=== PATIENT | male | born 1995 | race Caucasian/White ===

== ENCOUNTER 2018-01-30 15:11 | Emergency (ER) | payer OTHER ==
[~2018-01-30] VITALS: Ht 182.9 cm; Wt 83.9 kg
[2018-01-30 15:17] VITALS: BP 130/91
[2018-01-30] MEDS ORDERED: Norco 5mg/325mg tab ORAL ONE (15:30)
--- NOTE | 2018-01-30 16:31 | Emergency Room Report ---
History of Present Illness General Chief Complaint: Pain Source: Patient Present Illness HPI 22-year-old male presents to the emergency department complaining of 10 out of 10 in severity localized pain, tenderness, swelling and some bruising to the left lateral ankle and foot since last night. Patient reports that he was drinking last night and he tripped any parking lot and in the course he sustained his injury. Patient states that he continued to walk on his foot and when he woke up this morning he realized had significant swelling and tenderness. Patient denies hitting his head he denies loss of consciousness and he denies midline neck or back pain. He states last time he had any intake was approximately 11 PM last night Allergies: Coded Allergies: GABAPENTIN (Verified Allergy, Unknown, 01/30/18) Patient History Past Medical History: see triage record Past Surgical History: none Pertinent Family History: none Immunizations: UTD Reviewed Nursing Documentation: PMH: Agreed; PSxH: Agreed Nursing Documentation-PMH Past Medical History: No History, Except For Hx Seizures: Yes Review of Systems All Other Systems: negative except mentioned in HPI Physical Exam Vital Signs Date Time Temp Pulse Resp B/P (MAP) Pulse Ox O2 Delivery O2 Flow Rate FiO2 01/30/18 15:02 98.3 82 18 130/91 97 Room Air 98.2 Sp02 EP Interpretation: reviewed, normal General Appearance: no apparent distress, alert, GCS 15, non-toxic Head: normocephalic, atraumatic Eyes: bilateral eye normal inspection, bilateral eye PERRL ENT: hearing grossly normal, normal voice Neck: full range of motion Respiratory: lungs clear, normal breath sounds, speaking full sentences Cardiovascular #1: regular rate, rhythm, normal capillary refill Musculoskeletal: back normal, normal range of motion, swelling - lateral aspect of the left ankle, lateral aspect and dorsum of the left foot., tender - lateral aspect of the left ankle, lateral aspect and dorsum of the left foot. Neurologic: alert, oriented x3, responsive, motor strength/tone normal, sensory intact, speech normal, grossly normal Psychiatric: judgement/insight normal Skin: normal color, no rash, warm/dry, well hydrated, other - some bruising noted to lateral aspect of the left foot. Medical Decision Making PA Attestation Dr. rutherford is my supervising Physician whom patient management has been discussed with. Diagnostic Impression: Primary Impression: Left ankle sprain Qualified Codes: S93.402A - Sprain of unspecified ligament of left ankle, initial encounter ER Course 22-year-old male presents to the emergency department complaining of 10 out of 10 in severity localized pain, tenderness, swelling and some bruising to the left lateral ankle and foot since last night. Patient reports that he was drinking last night and he tripped any parking lot and in the course he sustained his injury. Patient states that he continued to walk on his foot and when he woke up this morning he realized had significant swelling and tenderness. Patient denies hitting his head he denies loss of consciousness and he denies midline neck or back pain. He states last time he had any intake was approximately 11 PM last night Ddx considered but are not limited to Fracture, dislocation, contusion, Sprain/ Strain/Spasm just to name a few. Vital signs: are WNL, pt. is afebrile H&PE are most consistent with musculoskeletal injury will perform imaging to r/ o fractures/dislocations. ORDERS: - X-ray Left foot and ankle 3 views each - negative for fx, Dislocation, or significant soft tissue injury, per preliminary read in ED, and signed by RHONDA Brownlee, my supervising physician has reviewed, and agrees with my interpretation. questionable osteophyte vs. avulsion fx of the left foot, pt. will be splinted prophylactically. ED INTERVENTIONS: - [place] PO -Ice was applied to affected area. - Posterior short leg Splint applied to the left foot/ankle by settlement technician. Pt. remains neurovascularly intact. -Patient is provided with crutches and instructed on their use DISCHARGE: At this time pt. is stable for d/c to home. Will provide printed patient care instructions, and any necessary prescriptions. Care plan and follow up instructions have been discussed with the patient prior to discharge. Other X-Ray Diagnostic Results Other X-Ray Diagnostic Results #1: X-Ray ordered: Left ankle # of Views/Limited Vs Complete: 3 View Indication: Pain EP Interpretation: Yes PA Xray: Interpretation reviewed Interpretation: no dislocation, other - ST swelling + osteophyte vs avulsion fx. Impression: Other - abnormal Electronically Signed by: Suzanne Brownlee PA-C Other X-Ray Diagnostic Results #2: X-Ray ordered: Left foot # of Views/Limited Vs Complete: 3 View Indication: Pain EP Interpretation: Yes PA Xray: Interpretation reviewed, by supervising MD Interpretation: no dislocation, other - St swelling and osteophyte vs avulsion fx. Impression: Other - abnormal - ST swelling Electronically Signed by: Suzanne Brownlee PA-C Last Vital Signs Date Time Temp Pulse Resp B/P (MAP) Pulse Ox O2 Delivery O2 Flow Rate FiO2 01/30/18 15:31 98.2 01/30/18 15:17 76 18 130/91 97 Room Air Disposition: HOME, SELF-CARE Condition: Stable Scripts Ibuprofen* (MOTRIN*) 600 Mg Tablet 600 MG ORAL THREE TIMES A DAY, #30 TAB 0 Refills Prov: Suzanne Brownlee 01/30/18 Patient Instructions: Ankle Sprain, [id number] Additional Instructions: Take medications as directed. Follow up with an [facility] in 3-5 days, even if your symptoms have resolved. If symptoms persist MRI may be required at the discretion of your PCP or Ortho Specialist. --Please review list of primary care clinics, if you do not already have a primary care provider who can give you an Orthopedic Referral. Return sooner to ED if new symptoms occur, or current symptoms become worse. - Please note that this Emergency Department Report was dictated using [employer] technology software, occasionally this can lead to erroneous entry secondary to interpretation by the dictation equipment. Suzanne Brownlee Jan 30, 2018 16:31
[2018-01-30] MEDS ORDERED: IBUPROFEN600 MG ORAL (16:32)
[2018-01-30 16:50] VITALS: BP 128/86
--- NOTE | 2018-01-31 10:55 | Diagnostic Imaging Report ---
Indication: left ankle pain Comparison: None Findings: 3 views of the left ankle obtained. Suspected avulsive injury along the lateral aspect of the calcaneus on one of the views. Soft tissue swelling also noted laterally. The remainder the exam is negative. There is no malalignment. IMPRESSION: Suspected avulsive injury in the lateral part of the hindfoot
--- NOTE | 2018-01-31 10:56 | Diagnostic Imaging Report ---
Indication: Foot pain Comparison: None Findings: 3 views of the left foot were obtained. There is a small bone fragment adjacent to the lateral aspect of the calcaneus consistent with a cortical avulsion fracture. Soft tissue swelling noted in association with this. The remainder the exam is negative. IMPRESSION: Cortical avulsion lateral hindfoot
== END 2018-01-30 16:50 | disposition home or self-care (01) ==
LOC: EDBD 15:11 → EMR 16:44
DX: S93.402A Sprain of unspecified ligament of left ankle, initial encounter (principal); W01.0XXA Fall on same level from slipping, tripping and stumbling without subsequent striking against object, initial encounter; Y93.89 Activity, other specified; Y92.481 Parking lot as the place of occurrence of the external cause
CPT/HCPCS: 99284

== ENCOUNTER 2019-01-08 06:55 | Inpatient (IN) | payer OTHER ==
[~2019-01-08] VITALS: Ht 182.9 cm; Wt 86.2 kg
[~2019-01-08 06:55] MED LIST: IBUPROFEN600 MG ORAL
[2019-01-08 07:00] VITALS: BP 146/90
[2019-01-08] MEDS ORDERED: Tranexamic Acid 500 MG in NS 55 ML IVPB ONE ×4 (07:00)
--- NOTE | 2019-01-08 07:05 | Emergency Room Report ---
History of Present Illness General Chief Complaint: Allergic Reaction Source: Patient, EMS Present Illness HPI Disclaimer: Please note that this report is being documented using [employer] technology. This can lead to erroneous entry secondary to incorrect interpretation by the dictating instrument. HPI: 23-year-old male with a history of hypertension who recently started lisinopril 1 month ago and recently was diagnosed with upper respiratory infection started on augmentin, prednisone, and Tessalon Perles presents for evaluation of an allergic reaction. The patient states he was in his usual state of health when he went to bed around midnight last night. He awoke approximately 4:30 AM noticing significant swelling of the lower lip. Denies any swelling in his throat, tongue, difficulty speaking, difficulty breathing. He was brought to the emergency department for evaluation. He has no complaints at this time aside from swelling in the lower lip. He has been taking lisinopril for approximately 1 month and has had about 5 doses of his augmentin, prednisone and Tessalon Perles. Patient has a known allergy to gabapentin but no other known allergies. Denies any skin rash, vomiting, lightheadedness, palpitations, tachycardia, swelling to other parts of the body or any other changes in his health. PMH: Hypertension PSH: Bone growth removal Allergies: Gabapentin Social Hx: Occasional alcohol use, denies tobacco or drug use Allergies: Coded Allergies: GABAPENTIN (Verified Allergy, Unknown, 01/30/18) LISINOPRIL (Verified Allergy, Unknown, 01/08/19) Nursing Documentation-PMH Hx Seizures: Yes Review of Systems All Other Systems: negative except mentioned in HPI Physical Exam General: Awake and alert, no acute distress HEENT: NC/AT. EOMI. PERRLA. Significant edema of the lower lip, upper lip is normal in appearance. Uvula is midline, tonsils are 2+ nonobstructing. No edema of the tongue, soft palate or pharynx. No subglossal or sub-mandibular edema Neck: Supple, trachea midline no lymphadenopathy, no edema Cardiovascular: RRR. S1 and S2 normal. No murmur appreciated Resp: Normal work of breathing. No cough, wheezing or crackles appreciated Abdomen: Abdomen is soft, nondistended. Nontender Skin: Intact. No abrasions, laceration or rash over the exposed skin MSK: Normal tone and bulk. Moving all extremities. No obvious deformity. Neuro: Awake and alert. Mentating appropriately. Medical Decision Making Diagnostic Impression: Primary Impression: Lip edema Additional Impression: Angioedema ER Course Is a 23-year-old male who is been on BARTOLO inhibitors for approximately 1 month to treat hypertension presenting for sudden swelling of the lower lip. At this time, greatest concern is for BARTOLO inhibitor induced angioedema though anaphylaxis, allergic reaction to other medications also on the differential. At this point, the patient has no edema of the airway, is ventilating and oxygenating without difficulty, speaking full sentences, tolerating secretions and has no swelling of the tongue or pharynx. He will be monitored closely in the emergency department, have basic labs drawn, treated with one gram of TXA and admit for airway monitoring. Last dose of lisinopril was 20 mg taken approximately 9 PM last evening Laboratory Tests Test 01/08/19 07:05 White Blood Count 9.9 K/UL (4.8-10.8) Red Blood Count 4.66 M/UL (4.70-6.10) L Hemoglobin 14.6 G/DL (14.2-18.0) Hematocrit 42.2 % (42.0-52.0) Mean Corpuscular Volume 91 FL (80-99) Mean Corpuscular Hemoglobin 31.4 PG (27.0-31.0) H Mean Corpuscular Hemoglobin Concent 34.6 G/DL (32.0-36.0) Red Cell Distribution Width 12.4 % (11.6-14.8) Platelet Count 217 K/UL (150-450) Mean Platelet Volume 5.0 FL (6.5-10.1) L Neutrophils (%) (Auto) 68.0 % (45.0-75.0) Lymphocytes (%) (Auto) 18.3 % (20.0-45.0) L Monocytes (%) (Auto) 12.3 % (1.0-10.0) H Eosinophils (%) (Auto) 0.8 % (0.0-3.0) Basophils (%) (Auto) 0.6 % (0.0-2.0) Sodium Level 139 MMOL/L (136-145) Potassium Level 3.8 MMOL/L (3.5-5.1) Chloride Level 101 MMOL/L (98-107) Carbon Dioxide Level 29 MMOL/L (21-32) Anion Gap 9 mmol/L (5-15) Blood Urea Nitrogen 23 mg/dL (7-18) H Creatinine 1.0 MG/DL (0.55-1.30) Estimate Glomerular Filtration Rate > 60 mL/min (>60) Glucose Level 85 MG/DL (74-106) Calcium Level 9.0 MG/DL (8.5-10.1) EKG Diagnostic Results EKG Time: 08:40 Rate: normal Rhythm: NSR ST Segments: no acute changes Other Impression Sinus rhythm, normal axis, normal intervals, no ST segment changes Rhythm Strip Diag. Results Rhythm Strip Time: 08:40 EP Interpretation: yes Rate: 70s Rhythm: NSR, no PVC's, no ectopy Reevaluation Time: 08:31 Reevaluation Impression Screening labs have returned unremarkable. Patient's clinical condition has not changed. He will be admitted to telemetry for close airway monitoring. Disposition: ADMITTED INPATIENT Condition: Serious José Miguel Syed MD Jan 08, 2019 07:05
[2019-01-08] MEDS ORDERED: Solu-MEDROL 125mg Inj IVP ONE (07:15)
--- NOTE | 2019-01-08 07:20 | NUR ---
ED Nurse Note:pt. came with angioedema with buttom lip swelling no airway obstruction, lisinopril is possible cause of allergic reaction, blood sent to labs, pt. is A/Ox4 ambulatory
[2019-01-08 07:29] LABS: BASOPHILS % (AUTO) 0.6 % (0.0-2.0); EOSINOPHILS % (AUTO) 0.8 % (0.0-3.0); HEMATOCRIT 42.2 % (42.0-52.0); HEMOGLOBIN 14.6 G/DL (14.2-18.0); LYMPHOCYTES % (AUTO) 18.3 % (20.0-45.0); MEAN CORPUSCULAR VOLUME 91 FL (80-99); MONOCYTES % (AUTO) 12.3 % (1.0-10.0); PLATELET COUNT 217 K/UL (150-450); RED BLOOD COUNT 4.66 M/UL (4.70-6.10); RED CELL DISTRIBUTION WIDTH 12.4 % (11.6-14.8); WHITE BLOOD COUNT 9.9 K/UL (4.8-10.8)
[2019-01-08 07:36] LABS: ANION GAP 9 mmol/L (5-15); BLOOD UREA NITROGEN 23 mg/dL (7-18); CARBON DIOXIDE 29 MMOL/L (21-32); CHLORIDE 101 MMOL/L (98-107); POTASSIUM 3.8 MMOL/L (3.5-5.1); SODIUM 139 MMOL/L (136-145)
[2019-01-08] MEDS ORDERED: DiphenhydrAMINE 50mg/ml Inj IVP ONE (08:15)
[2019-01-08 08:56] VITALS: BP 130/69
--- NOTE | 2019-01-08 08:57 | NUR ---
ED Nurse Note:pt. is on hall monitor, has visible reduction in lip swelling , given iv meds, airways are open, VSS, continue monitoring
[2019-01-08] MEDS ORDERED: AMOX TR-K CLV1 EAC2 ORAL (09:03)
[2019-01-08] MEDS ORDERED: TESSALON PERLE100 MG ORAL (09:03)
[2019-01-08] MEDS ORDERED: PREDNISONE10 MG ORAL (09:03)
--- NOTE | 2019-01-08 10:05 | NUR ---
ED Nurse Note:called tele- report given to William LOYD
--- NOTE | 2019-01-08 11:19 | NUR ---
NURSE NOTES: Paged Dr Santiago for admission orders (1025am and 1115am) including meds and diet. Patient is NPO but ordered delivery of food stated "i have been intermittently fasting, so when this happened I was already starving!" patient is waiting to eat and is aox4 with calm, cooperative affect. Addendum: 01/08/19 at 1146 by Arvind Ma RN Called Dr Márquez service and left message at 1140am for admission orders. Ptient is still nPO and now BP elevation --need orders. Addendum: 01/08/19 at 1150 by Arvind Ma RN [id number]: This RN spoke with RN tile setter supervisor who advised charge gang weigher to try Dr Márquez again and call Dr Santiago again.
[2019-01-08 12:00] VITALS: BP 160/87
[2019-01-08 14:06] VITALS: BP 160/87
--- NOTE | 2019-01-08 14:52 | NUR ---
NURSE NOTES:policy writer sales able to contact Dr Tony and obtain orders for diet and then cont'd with contacts to Dr Marie to obtain further orders for BP and other issues (labs, etc.) Patient was calm but upset about waiting to eat. Heated up patient's meal that he ordered delivered to Hospital and tray arrived shortly thereafter. Patient seemed content and was able to eat without coughing or any swallowing difficulty. Lip swelling 50%+ decrease in swelling and patient stated "I feel like Dorie Mendoza" During meal break rn hemodialysis charge in room with patient who stated he had decided to go AMA. Patient was not in room at return to work from meal break.
--- NOTE | 2019-01-09 09:51 | Discharge Summary ---
Discharge Summary Discharge Summary _ DATE OF ADMISSION: 01/08/2019 DATE OF DISCHARGE: 01/08/2019 Patient left AGAINST MEDICAL ADVICE REASON FOR ADMISSION: 23 years old male with past medical history of hypertension , who recently started on lisinopril /1 month ago , presented for evaluation of allergic reaction. Patient apparently recently was also diagnosed with upper respiratory infection , and started on Augmentin, prednisone, and Tessalon Perles. Patient went to bed last night around midnight and woke up early in the morning noting significant swelling of the lower lip. He denies swelling of the throat or tongue . He denied difficulty speaking or difficulty breathing. Patient came to emergency room for evaluation . Patient reported that he was taking lisinopril for 1 month and received 5 doses of Augmentin, prednisone and Tessalon Perles. Patient with known allergy to gabapentin, but no other allerg ies were previously reported. No skin rash. No vomiting. No lightheadedness or palpitations. No tachycardia. No swelling to the other parts of the body. Laboratory work-up revealed no leukocytosis, stable hemoglobin and hematocrit. Stable electrolytes There was a concern for BARTOLO inhibitor induced angioedema anaphylaxis , though allergic reaction to other medication was in differential as well. Patient was admitted for airway observation and monitoring. Last dose of lisinopril was at night- 20 mg. In ED patient was treated with 1 gm of IV TXA, IV Solumedrol and Benadryl. Patient was admitted fro airway monitoring. HOSPITAL COURSE: Patient admitted to medical surgical floor. Patient was closely monitored. Pulse oximetry was stable on room air , no evidence of respiratory compromise, no further spreading of edema. Patient was hungry, wanted to eat and decided to sign AGAINST MEDICAL ADVICE, since he felt better. Patient was able to eat without coughing or any swallowing difficulty. Lip swelling at least 50% decreased . The risks and consequences of signing AGAINST MEDICAL ADVICE were discussed with patient in detail. Patient was strongly advised on holding BARTOLO inhibitor and follow-up with primary care provider next week for a change in antihypertensive regimen. Patient verbalized understanding, but later left without signed AMA form . FINAL DIAGNOSES Angioedema possibly due to BARTOLO Hypertension I have been assigned to dictate discharge summary for this account. I was not involved in the patient's management. Kayy Dave NP Jan 09, 2019 09:51
--- NOTE | 2019-01-09 11:34 | Cardiology Report ---
APPROVED REPORT EKG Measurement Heart [id number] Normal sinus rhythm with sinus arrhythmia Lateral infarct, age undetermined Abnormal ECG
== END 2019-01-08 14:36 | disposition left against medical advice (07) | DRG 811 ==
LOC: EDBD 06:55 → EMR 07:20 → EDBEDREQ 09:16 → 2E 09:38
DX: T78.3XXA Angioneurotic edema, initial encounter (principal); T46.4X5A Adverse effect of angiotensin-converting-enzyme inhibitors, initial encounter; Y92.009 Unspecified place in unspecified non-institutional (private) residence as the place of occurrence of the external cause; I10 Essential (primary) hypertension; Z88.6 Allergy status to analgesic agent
CPT/HCPCS: 36415; 80048; 85025; 93005; 96365; 96375; 99285

== ENCOUNTER 2019-04-06 02:53 | Emergency (ER) | payer OTHER ==
[~2019-04-06] VITALS: Ht 182.9 cm; Wt 86.2 kg
[~2019-04-06 02:53] MED LIST changes: +AMOX TR-K CLV1 EAC2 ORAL; +PREDNISONE10 MG ORAL; +TESSALON PERLE100 MG ORAL
--- NOTE | 2019-04-06 02:58 | NUR ---
ED Nurse Note: Patient brought in by ambulance [facility] RA26 d/t sore throat and dizziness as chief complaint. Patient stated he smoked some marijuana and had 4 mixed drinks an hour and a half prior to calling ambulance. Patient AAO to self, place, and purpose. Patient ambulatory. Patient placed on cardiac rehab nurse and gown. No acute distress noted during assessment. Addendum: 04/06/19 at 0312 by MARYEL ED Nurse Note: Patient brought in by ambulance [facility] RA26 from home d/t sore throat and dizziness as chief complaint. Patient stated he smoked some marijuana and had 4 mixed drinks an hour and a half prior to calling ambulance. Patient AAO to self, place, and purpose. Patient c/o chest heaviness 10/19. Patient ambulatory. Patient placed on cardiac rehab nurse and gown. No acute distress noted during assessment.
[2019-04-06 03:03] VITALS: BP 132/75
--- NOTE | 2019-04-06 03:14 | NUR ---
ED Nurse Note: ERMD at bedside
--- NOTE | 2019-04-06 03:25 | Emergency Room Report ---
History of Present Illness General Chief Complaint: Substance Abuse Source: Patient Present Illness HPI The patient is brought in by paramedics. He was complaining about chest and throat pain. Apparently he ingested several different substances over the course of the day. He started vomiting uncontrollably and developed diaphoresis. He took propranolol 40 mg as it has been prescribed for him for anxiety. The vomiting persisted and now he has pain in the back of his throat. He does not know whether he was throwing up blood. He denies any melena or diarrhea. During the episode where he felt ill he had chest pain stating that he felt someone he was standing on his chest at that time. The substances used were THC smoked, Adderall, and alcohol. He denies use of cocaine. Denies prior cardiac injury. He denies suicidal or homicidal ideation. No fevers, chills, diarrhea, dysuria, abdominal pain, joint pain, rashes, visual changes, dizziness, headache. Allergies: Coded Allergies: GABAPENTIN (Verified Allergy, Unknown, 01/30/18) LISINOPRIL (Verified Allergy, Unknown, 01/08/19) Patient History Past Medical History: see triage record Social History: Reports: alcohol use, drug use Social History Narrative From home Reviewed Nursing Documentation: PMH: Agreed; PSxH: Agreed Nursing Documentation-PMH Past Medical History: No History, Except For Hx Hypertension: Yes Hx Seizures: Yes Review of Systems All Other Systems: negative except mentioned in HPI Physical Exam Vital Signs Date Time Temp Pulse Resp B/P (MAP) Pulse Ox O2 Delivery O2 Flow Rate FiO2 04/06/19 02:49 97.9 80 15 147/102 (117) 98 Room Air Sp02 EP Interpretation: reviewed, normal General Appearance: well appearing, no apparent distress, GCS 15, other Head: normocephalic Eyes: bilateral eye PERRL - Dilated pupils, bilateral eye Scleral Injection ENT: normal pharynx, moist mucus membranes Neck: supple Respiratory: chest non-tender, lungs clear, normal breath sounds Cardiovascular #1: regular rate, rhythm Cardiovascular #2: 2+ radial (R) Gastrointestinal: normal inspection, normal bowel sounds, non tender, no mass, non-distended, scaphoid Genitourinary: no CVA tenderness Musculoskeletal: back normal, normal range of motion Neurologic: motor strength/tone normal, oriented x3, sensory intact, speech normal - Slightly slurred, other - Sleepy Psychiatric: no suicidal/homicidal ideation, depressed affect Skin: no rash, warm/dry Medical Decision Making Diagnostic Impression: Primary Impression: Esophagitis Additional Impressions: Vomiting Qualified Codes: R11.2 - Nausea with vomiting, unspecified Substance abuse ER Course Patient presents with chest pain and throat pain after use of several different substances. Differential includes acute myocardial infarction, Elizabeth-Villalba tear, hyperemesis syndrome amongst others. EKG is indicated as well as cardiac monitoring. The patient will be treated with Mylanta Zofran. Based on the EKG further lab testing may be indicated. EKG normal sinus rhythm with nonspecific ST-T wave changes rate 75. Urine tox positive for THC. Patient reevaluated: awake ambulatory and tolerating oral intake. He denies intent to harm himself. Discussed findings and suggested treatment plan. Patient stable for outpatient observation and treatment. Laboratory Tests Test 04/06/19 03:41 Urine Opiates Screen Negative (NEGATIVE) Urine Barbiturates Screen Negative (NEGATIVE) Phencyclidine (PCP) Screen Negative (NEGATIVE) Urine Amphetamines Screen Negative (NEGATIVE) Urine Benzodiazepines Screen Negative (NEGATIVE) Urine Cocaine Screen Negative (NEGATIVE) Urine Marijuana (THC) Screen Positive (NEGATIVE) H EKG Diagnostic Results Rate: normal Rhythm: NSR ST Segments: no acute changes Rhythm Strip Diag. Results EP Interpretation: yes Rhythm: NSR, no PVC's, no ectopy Last Vital Signs Date Time Temp Pulse Resp B/P (MAP) Pulse Ox O2 Delivery O2 Flow Rate FiO2 04/06/19 05:48 98.2 85 16 122/69 99 Room Air Status: improved Disposition: HOME, SELF-CARE Condition: Improved Scripts Famotidine* (Pepcid 20mg tablet*) 20 Mg Tablet 20 MG ORAL DAILY, #10 TAB 0 Refills Prov: Keegan Wilde MD 04/06/19 Ondansetron Odt* (ZOFRAN ODT*) 4 Mg Tab.rapdis 4 MG BC EVERY 8 HOURS, #6 TAB 0 Refills Prov: Keegan Wilde MD 04/06/19 Referrals: NOT CHOSEN IPA/,REFERRING (PCP) Keegan Wilde MD Apr 06, 2019 03:25
--- NOTE | 2019-04-06 03:29 | NUR ---
ED Nurse Note: Patient attempted x 1 to provide urine sample, unable to do so at this time.
[2019-04-06] MEDS ORDERED: Mylanta II UD 30ml ORAL ONE (03:30)
--- NOTE | 2019-04-06 03:47 | NUR ---
ED Nurse Note: Urine sample collected and sent to lab.
[2019-04-06 05:09] VITALS: BP 112/65
--- NOTE | 2019-04-06 05:36 | NUR ---
ED Nurse Note: ERMD at bedside
[2019-04-06] MEDS ORDERED: ONDANSETRON ODT4 MG BC (05:44)
[2019-04-06] MEDS ORDERED: FAMOTIDINE20 MG ORAL (05:44)
[2019-04-06 05:48] VITALS: BP 122/69
--- NOTE | 2019-04-06 05:48 | NUR ---
ER DISCHARGE NOTE: Patient is cleared to be discharged per ERMD. Patient was given discharge instructions and prescriptions, verbalized understanding. Patient aao x 4 and ambulatory upon discharge. Medical devices and ID band removed. No c/o pain. Patient stable upon discharge.
== END 2019-04-06 05:48 | disposition home or self-care (01) ==
LOC: EDBD 02:53 → EMR 03:15
DX: K20.9 Esophagitis, unspecified (principal); R11.2 Nausea with vomiting, unspecified; F12.10 Cannabis abuse, uncomplicated; I10 Essential (primary) hypertension; G40.909 Epilepsy, unspecified, not intractable, without status epilepticus; Z88.8 Allergy status to other drugs, medicaments and biological substances; Z72.89 Other problems related to lifestyle
CPT/HCPCS: 80307; 93005; Z7502; 99284